=== PATIENT | male | born 1965 | race Caucasian/White ===

== ENCOUNTER 2020-04-10 11:36 | Emergency (ER) | payer OTHER, SELFPAY ==
[2020-04-10] VITALS (15 sets, daily range): BP systolic 134–154; BP diastolic 80–100; PULSE 64–77; RESP 8–18; TEMP 36.8; O2SAT 92–100; BMI 22.9
--- NOTE | 2020-04-10 11:47 | ED.FALL ---
HPI - Fall General Chief Complaint: Trauma Stated Complaint: Modified Trauma Time Seen by Provider: 04/10/20 11:46 Source: patient and EMS Mode of arrival: EMS Limitations: no limitations History of Present Illness HPI Narrative: Patient brought in by EMS from work site. Patient working on a roof. On the ladder and lost his balance, fell from 8 feet above the ground. Patient states he was very alert about how he was going to land during the fall and denies denies hitting his head or neck. Broke his fall by posting his right arm outwards. Denies any other injuries other than the right upper extremity. Complains of humerus pain. Denies denies any loss of consciousness. No head or face or neck pain. No back pain no chest pain abdominal pain. No pelvis pain. ATLS protocol followed. See nurse's notes. Patient arrived in C-collar. Denied any neck pain at the scene. He did receive fentanyl, 150 mcg total with Zofran in route. Patient is awake alert oriented x4. Not altered. C-collar cleared clinically. No no no midline tenderness. No pain with movement. No neuro deficits shirt removed. Shoes and socks removed. Related Data Home Medications Medication Instructions Recorded Confirmed ibuprofen [Advil] 600 mg PO PRN #0 10/22/11 Previous Rx's Medication Instructions Recorded diazepam [Valium] 5 mg PO BID PRN #7 tab 04/10/20 ondansetron 4 mg PO Q8H PRN #10 tab 04/10/20 oxycodone-acetaminophen 1 tab PO QID PRN #20 tab 04/10/20 Allergies Allergy/AdvReac Type Severity Reaction Status Date / Time No Known Drug Allergies Allergy Verified 04/10/20 12:12 Review of Systems Review of Systems Narrative: GENERAL: Denies chills, fatigue, malaise, fever, sweats. HEENT: Denies sinus pain, ear pain, sore throat, difficulty swallowing, dizziness. RESPIRATORY: Denies dyspnea, cough, wheezing, hemoptysis, sputum. CARDIOVASCULAR: Denies chest pain, palpitations, orthopnea, edema, GASTROINTESTINAL: Denies nausea, vomiting, abdominal pain, diarrhea, constipation, melena. : Denies dysuria, frequency, incontinence, hematuria, urinary retention. MUSCULOSKELETAL: denies weakness, complaints of bony pain SKIN: Denies rash, skin lesions NEUROLOGIC: Denies weakness, headache, numbness, change in speech, confusion, seizures, incoordination. PSYCHIATRIC: No concerning psychosocial issues. ROS Unobtainable: All systems reviewed & are unremarkable except as noted in HPI and below Exam Narrative Exam Narrative: GENERAL: patient appears stated age. Well-nourished, well-developed patient, in no distress, not toxic, shirt removed HEAD: Atraumatic. Normocephalic. Nontender face head neck scalp. EYES: Pupils equal round and reactive. Extraocular motions intact. No scleral icterus. No injection or drainage. ENT: Nose without bleeding, purulent drainage. Throat without erythema, tonsillar hypertrophy or exudate. Airway patent. NECK: Trachea midline. Non tender, C-collar cleared clinically. No no no midline tenderness or step-off. Full flexion extension rotation of the neck without any pain or numbness tingling to the limbs CARDIOVASCULAR: Regular rate and rhythm without murmurs, gallops, or rubs. RESPIRATORY: Clear to auscultation. Breath sounds equal bilaterally. No wheezes, rales, or rhonchi. GASTROINTESTINAL: Abdomen soft, non-tender, nondistended. EXTREMITIES: Nontender left upper extremity shoulder joint elbow and wrist. Nontender bilateral pelvis hips knees and ankles. 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 Nontender elbow wrist and hand. There is mid humerus deformity with tenderness to touch. Nontender right shoulder. No gross deformity BACK: Nontender without deformity or crepitance. No flank tenderness. Patient log-rolled after C-collar cleared clinically. No no midline tenderness or step-off. No skin injury. NEURO: AOx4. SKIN: No rash or erythema of visible areas, small abrasion to the right elbow PSYCH: Not anxious, is cooperative Initial Vital Signs Initial Vital Signs: Vital Signs Pulse Rate 68 04/10/20 11:39 Blood Pressure 142/100 H 04/10/20 11:39 Pulse Oximetry 98 04/10/20 11:39 Procedures Orthopedic Splinting/Casting Right humerus: Side: right Upper Extremity Injury Location: upper arm Upper Extremity Immobilizer: sling/shoulder immobilizer (Humerus brace) Post splinting neuro exam: intact Post splinting vascular exam: intact Placed by: Provider Course Course Course Narrative: Patient tolerating splinting very well. No hypotension with medications given. No altered mental status dyspnea hypoxia or hypotension with medications given here patient has remained on monitor Orders Ordered: ED Orders 04/10/20 11:43 Complete Blood Count AUTO DIFF Stat Comprehensive Metabolic Panel Stat 04/10/20 11:46 XR humerus RT 2V Stat XR pelvis 1-2V Stat XR shoulder RT min 2V Stat 04/10/20 11:51 XR chest 1V Stat 04/10/20 13:44 XR humerus RT 2V Stat Discontinued Medications Bacitracin (Bacitracin) 3 applic TOP NOW ONE Stop: 04/10/20 12:37 Last Admin: 04/10/20 12:47 Dose: 3 applic Documented by: AMIRA Diazepam (Valium) 5 mg IV NOW ONE Stop: 04/10/20 13:26 Last Admin: 04/10/20 13:45 Dose: 5 mg Documented by: AMIRA Diphtheria/Tetanus/Acell Pertussis (Adacel) 0.5 ml IM .ONCE ONE Stop: 04/10/20 11:47 Last Admin: 04/10/20 12:12 Dose: 0.5 ml Documented by: TAWNY Hydromorphone HCl (Dilaudid) 1 mg IM NOW ONE Stop: 04/10/20 15:09 Last Admin: 04/10/20 15:16 Dose: 1 mg Documented by: MORENO Morphine Sulfate (Morphine) 4 mg IV NOW ONE Stop: 04/10/20 13:12 Last Admin: 04/10/20 13:42 Dose: Not Given Documented by: AMIRA Morphine Sulfate (Morphine) 4 mg IV NOW ONE Stop: 04/10/20 13:49 Last Admin: 04/10/20 14:16 Dose: 4 mg Documented by: AMIRA Reevaluation(s) Reevaluation #1: Mother at bedside to take patient home. Patient is hemodynamically stable awake alert oriented x4. No altered mental status. Pain medication given here has not altered patient or cause any hypoxia or hypotension or altered mental status. Patient desires discharge home Time: 15:15 Consultations Consultation #1: Spoke with Orthopedics, dr kavitha patel... She has reviewed films and agrees with treatment plan. Patient can follow up next week. Time: 14:01 Vital Signs Vital signs: Vital Signs - 8 hr 04/10/20 11:39 04/10/20 11:55 04/10/20 12:02 Temperature 98.3 F Pulse Rate 68 67 68 Respiratory Rate 15 Blood Pressure 142/100 H 142/100 H Pulse Oximetry 98 98 99 04/10/20 12:09 04/10/20 12:15 04/10/20 12:30 Temperature Pulse Rate 65 66 66 Respiratory Rate 15 12 14 Blood Pressure 154/88 H 154/90 H 144/90 H Pulse Oximetry 100 100 96 04/10/20 12:45 04/10/20 13:00 04/10/20 13:15 Temperature Pulse Rate 65 66 65 Respiratory Rate 15 8 L 8 L Blood Pressure 149/90 H 144/90 H 135/81 Pulse Oximetry 98 96 96 04/10/20 13:30 04/10/20 13:45 04/10/20 14:00 Temperature Pulse Rate 66 64 66 Respiratory Rate 18 13 17 Blood Pressure 135/85 138/86 134/85 Pulse Oximetry 96 92 92 04/10/20 14:15 04/10/20 14:30 04/10/20 14:46 Temperature Pulse Rate 76 72 77 Respiratory Rate 12 15 Blood Pressure 146/87 H 144/80 H 143/81 H Pulse Oximetry 96 94 96 MDM - Fall Differential Diagnosis Differential diagnosis: Likely other (Abrasion/arm fracture) Lab Data Attestation: I reviewed the patient's lab results. Result diagrams: 04/10/20 11:43 04/10/20 11:43 Labs: Lab Results 04/10/20 04/10/20 Range/Units 11:43 11:43 WBC 7.8 (4.5-11.0) X10^3/uL RBC 4.65 (4.5-5.9) X10^6/uL Hgb 14.1 (13.5-17.5) g/dL Hct 40.6 L (41-53) % MCV 87.3 (80-100) fL MCH 30.3 (26-34) PG MCHC 34.7 (30-36) % RDW 13.2 (11.6-14.8) % Plt Count 195 (150-400) X10^3/uL Neut % (Auto) 54.8 (50-75) % Lymph % (Auto) 34.5 (25-40) % [place] % (Auto) 6.9 (3-14) % Eos % (Auto) 3.2 (2-4) % Baso % (Auto) 0.6 (0-2) % Neut # (Auto) 4300 (3523-6592) /uL Lymph # (Auto) 2700 (9366-6334) /uL [place] # (Auto) 500 (0-900) /uL Eos # (Auto) 200 (0-450) /uL Baso # (Auto) 0 (0-100) /uL Sodium 137 (137-145) mmol/L Potassium 3.8 (3.4-5.1) mmol/L Chloride 104 (98-107) mmol/L Carbon Dioxide 27 (22-32) mmol/L BUN 14 (9-20) mg/dL Creatinine 0.74 (0.66-1.25) mg/dL Estimated GFR > 60.0 (>60) mL/min BUN/Creatinine Ratio 18.9 (6-22) Glucose 110 H (70-100) mg/dL Calcium 8.6 (8.4-10.2) mg/dL Total Bilirubin 0.7 (0.2-1.3) mg/dL AST 48 (17-59) IU/L ALT 33 (<50) IU/L Alkaline Phosphatase 48 (38-126) U/L Total Protein 6.7 (6.3-8.2) g/dL Albumin 4.0 (3.5-5.0) g/dL Globulin 2.7 (1.7-4.1) g/dL Albumin/Globulin Ratio 1.5 (1.0-2.8) Imaging Data X-ray right humerus: Radiologist's Impression: [address] [address] XRay Report Signed Patient: Aime Mccarty R#: [id number] : 1965Acct:[id number] Age/Sex: 55 / MDate of Service: 04/10/20 Loc: ED Accession Number: [id number] Procedure: XR humerus RT 2V Ordering Provider: Malik Mclean MD PROCEDURE: XR HUMERUS RT 2V INDICATIONS: Pain/trauma/injury TECHNIQUE: 2 views of the humerus were acquired. COMPARISON: None. FINDINGS: Bones: Slightly overriding, displaced fracture of the mid humeral diaphysis. There is anterior displacement of the distal fracture fragment. Soft tissues: No suspicious soft tissue calcifications. IMPRESSION: Overriding mid right humeral diaphyseal fracture Dictated by: Bob Headley M.D. on 04/10/2020 at 12:13 Approved by: Bob Headley M.D. on 04/10/2020 at 12:27 X-ray right humerus post splint: Radiologist's Impression: [address] [address] XRay Report Signed Patient: Aime Mccarty R#: [id number] : 1965Acct:[id number] Age/Sex: 55 / MDate of Service: 04/10/20 Loc: ED Accession Number: [id number] Procedure: XR humerus RT 2V Ordering Provider: Malik Mclean MD PROCEDURE: XR HUMERUS RT 2V INDICATIONS: Post reduction TECHNIQUE: 2 views of the humerus were acquired. COMPARISON: [facility], , XR HUMERUS RT 2V, 04/10/2020, 11:36. FINDINGS: Bones: No previously on identified fractures or dislocations. No suspicious bony lesions. Post reduction plain film show little change from earlier same day. Soft tissues: No suspicious soft tissue calcifications. IMPRESSION: No significant change in midshaft right humeral diaphyseal fracture after reduction. Fracture tips remain in apposition, but offset. Dictated by: Farhad Duncan M.D. on 04/10/2020 at 14:10 Approved by: Farhad Duncan M.D. on 04/10/2020 at 14:11 X-ray pelvis: Radiologist's Impression: [address] [address] XRay Report Signed Patient: Aime Mccarty R#: [id number] : 1965Acct:[id number] Age/Sex: 55 / MDate of Service: 04/10/20 Loc: ED Accession Number: [id number] Procedure: XR pelvis 1-2V Ordering Provider: Malik Mclean MD PROCEDURE: XR PELVIS 1-2V INDICATIONS: Pain/trauma/injury TECHNIQUE: 1 view(s) of the pelvis acquired. COMPARISON: None. FINDINGS: Bones: No fractures or dislocations. No suspicious bony lesions. Soft tissues: Visualized bowel gas pattern is normal. No suspicious soft tissue calcifications. IMPRESSION: No fracture. No osseous lesion. If symptoms and/or clinical suspicion for pathology persists, further assessment with repeat radiographs (7-10 days) or advanced imaging (e.g. CT, MRI or bone scan) may be helpful. Dictated by: Mercedes Kumari MD, PhD on 04/10/2020 at 12:29 Approved by: Mercedes Kumari MD, PhD on 04/10/2020 at 12:30 X-ray right shoulder: Radiologist's Impression: [address] [address] XRay Report Signed Patient: Aime Mccarty R#: [id number] : 1965Acct:[id number] Age/Sex: 55 / MDate of Service: 04/10/20 Loc: ED Accession Number: [id number] Procedure: XR shoulder RT min 2V Ordering Provider: Malik Mclean MD PROCEDURE: XR SHOULDER RT MIN 2V INDICATIONS: Pain/trauma/injury TECHNIQUE: 2 views of the shoulder were acquired. COMPARISON: None. FINDINGS: Bones: Transverse fracture of the proximal right humerus noted. Fracture is displaced medially and angulated. Soft tissues: No suspicious soft tissue calcifications. IMPRESSION: Proximal right humerus fracture. Dictated by: Mercedes Kumari MD, PhD on 04/10/2020 at 12:28 Approved by: Mercedes Kumari MD, PhD on 04/10/2020 at 12:29 Chest x-ray: Radiologist's Impression: [address] [address] XRay Report Signed Patient: Aime Mccarty R#: [id number] : 1965Acct:[id number] Age/Sex: 55 / MDate of Service: 04/10/20 Loc: ED Accession Number: [id number] Procedure: XR chest 1V Ordering Provider: Malik Mclean MD PROCEDURE: XR CHEST 1V INDICATIONS: Pain/trauma/injury TECHNIQUE: One view of the chest was acquired. COMPARISON: [facility], , CHEST 2 VIEW, 01/27/2009, 9:07. [facility], CHEST 2 VIEW, 01/07/2010, 8:09. FINDINGS: Surgical changes and devices: None. Scattered subsegmental atelectasis and/or scarring. No focal consolidation. No pleural effusions or pneumothorax. Mediastinum: Mediastinal contours appear normal. Heart size is normal. Bones and chest wall: No suspicious bony lesions. Overlying soft tissues appear unremarkable. IMPRESSION: No acute disease Dictated by: Bob Headley M.D. on 04/10/2020 at 12:27 Approved by: Bob Headley M.D. on 04/10/2020 at 12:29 [facility] Narrative Medical decision making narrative: Appropriate for discharge home. Patient hemodynamically stable. Pain is controlled. Care with for abrasion complete here with Hibiclens and saline and bacitracin. No imaging of head or C-spine indicated. Patient is awake alert oriented not altered. There is no complains of head pain or trauma or injury. No trauma on exam of the head and neck. Discharge Plan Departure Patient Disposition: Home Clinical Impression: Closed fracture of humerus Qualifiers: Encounter type: initial encounter Humerus Location: shaft Fracture morphology: transverse Fracture alignment: displaced Laterality: right Qualified Code(s): S42.321A - Displaced transverse fracture of shaft of humerus, right arm, initial encounter for closed fracture Discharge Date/Time: 04/10/20 15:42 Instructions: DI for Trauma, Humeral Shaft Fracture Activity Restrictions/Additional Instructions: No driving or operating machinery. Called provided orthopedic office on Monday, Dr. Patel for office time next week. Keep in brace/splint. Return if worse or if worse in pain or if any numbness tingling or weakness to the hand or if any questions or concerns. Prescriptions: New ondansetron 4 mg tablet,disintegrating 4 mg PO Q8H PRN (Reason: nausea and vomiting) Qty: 10 RF: 0 oxycodone-acetaminophen 7.5-325 mg tablet 1 tab PO QID PRN (Reason: pain) Qty: 20 RF: 0 diazepam [Valium] 5 mg tablet 5 mg PO BID PRN (Reason: muscle spasm) Qty: 7 RF: 0 No Action ibuprofen [Advil] 200 MG tablet 600 mg PO PRN Qty: 0 RF: 0 Referrals: Michael Neri MD [Primary Care Provider] - Kavitha Patel MD [Physician] - Stand Alone Forms: Work Release Note
--- NOTE | 2020-04-10 11:51 | DI.RAD.S_ITS ---
PROCEDURE: XR CHEST 1V INDICATIONS: Pain/trauma/injury TECHNIQUE: One view of the chest was acquired. COMPARISON: [facility], CHEST 2 VIEW, 01/27/2009, 9:07. [facility], CHEST 2 VIEW, 01/07/2010, 8:09. FINDINGS: Surgical changes and devices: None. Scattered subsegmental atelectasis and/or scarring. No focal consolidation. No pleural effusions or pneumothorax. Mediastinum: Mediastinal contours appear normal. Heart size is normal. Bones and chest wall: No suspicious bony lesions. Overlying soft tissues appear unremarkable. IMPRESSION: No acute disease Dictated by: Bob Headley M.D. on 04/10/2020 at 12:27 Approved by: Bob Headley M.D. on 04/10/2020 at 12:29
[2020-04-10 12:03] LABS: Alanine Aminotransferase 33 IU/L (<50); Albumin Globulin Ratio 1.5 (1.0-2.8); Alkaline Phosphatase 48 U/L (38-126); Aspartate Aminotransferase 48 IU/L (17-59); BUN Creatinine Ratio 18.9 (6-22); Bilirubin Total 0.7 mg/dL (0.2-1.3); Blood Urea Nitrogen 14 mg/dL (9-20); Calcium 8.6 mg/dL (8.4-10.2); Carbon Dioxide 27 mmol/L (22-32); Chloride 104 mmol/L (98-107); Estimated Glomerular Filt Rate > 60.0 mL/min (>60); Globulin 2.7 g/dL (1.7-4.1); Glucose 110 mg/dL (70-100); HEMOLYSIS < 15 (0-50); Potassium 3.8 mmol/L (3.4-5.1); Sodium 137 mmol/L (137-145); Total Protein 6.7 g/dL (6.3-8.2)
[2020-04-10] MEDS: TET,DIPH,PERTUSS(ACELL),VAC/PF 0.5 ML SYRINGE IM (12:12)
[2020-04-10] MEDS: HYDROMORPHONE 1 MG INJ (12:13)
[2020-04-10] MEDS: fentaNYL 100 MCG/2 ML INJ (12:36)
[2020-04-10] MEDS: BACITRACIN OINT 0.9 GM PCKT 3 APPLIC TOP (12:47)
[2020-04-10 13:08] LABS: Add Manual Diff / Slide Review NO; Basophils Absolute Auto 0 /uL (0-100); Basophils Percent Auto 0.6 % (0-2); Eosinophils Absolute Auto 200 /uL (0-450); Eosinophils Percent Auto 3.2 % (2-4); Hematocrit 40.6 % (41-53); Hemoglobin 14.1 g/dL (13.5-17.5); Lymphocytes Absolute Auto 2700 /uL (1100-4500); Lymphocytes Percent Auto 34.5 % (25-40); Mean Corpuscular HGB Conc 34.7 % (30-36); Mean Corpuscular Hemoglobin 30.3 PG (26-34); Mean Corpuscular Volume 87.3 fL (80-100); Monocytes Absolute Auto 500 /uL (0-900); Monocytes Percent Auto 6.9 % (3-14); Neutrophils Absolute Auto 4300 /uL (1500-7000); Neutrophils Percent Auto 54.8 % (50-75); Platelet Count 195 X10^3/uL (150-400); Red Blood Cell Count 4.65 X10^6/uL (4.5-5.9); Red Cell Distribution Width 13.2 % (11.6-14.8); White Blood Cell Count 7.8 X10^3/uL (4.5-11.0)
--- NOTE | 2020-04-10 13:44 | DI.RAD.S_ITS ---
PROCEDURE: XR HUMERUS RT 2V INDICATIONS: Post reduction TECHNIQUE: 2 views of the humerus were acquired. COMPARISON: [facility], CR, XR HUMERUS RT 2V, 04/10/2020, 11:36. FINDINGS: Bones: No previously on identified fractures or dislocations. No suspicious bony lesions. Post reduction plain film show little change from earlier same day. Soft tissues: No suspicious soft tissue calcifications. IMPRESSION: No significant change in midshaft right humeral diaphyseal fracture after reduction. Fracture tips remain in apposition, but offset. Dictated by: Farhad Duncan M.D. on 04/10/2020 at 14:10 Approved by: Farhad Duncan M.D. on 04/10/2020 at 14:11
[2020-04-10] MEDS: diazePAM 10 MG/2 ML SYRINGE 5 MG IV (13:45)
--- NOTE | 2020-04-10 13:49 | PC.NURSE ---
1137: Please see trauma flowsheet for initial assessment documentation. 1330: Pt medicated for pain and HANH spasms per SEP. Pt placed in Humeral cuff splint as reduction for HANH fracture. Appears more comfortable. XR in room at this time for post reduction fracture.
[2020-04-10] MEDS: MORPHINE 4 MG/ML INJ IV (14:16)
[2020-04-10] MEDS: HYDROMORPHONE 1 MG INJ IM (15:16)
--- NOTE | 2020-04-10 15:43 | PC.NURSE ---
This RN placed a sling on pt's R arm with assistance from a second RN after administration of IM pain medication. Pt educated on sling use and s/s of complications.
== END 2020-04-10 15:42 | disposition home or self-care (01) ==
PROVIDERS: Emergency Provider Emergency Medicine; Family Provider Family Medicine; PCP Family Medicine
DX: S42.321A Displaced transverse fracture of shaft of humerus, right arm, initial encounter for closed fracture (principal); S09.90XA Unspecified injury of head, initial encounter; W11.XXXA Fall on and from ladder, initial encounter; Z23 Encounter for immunization; Y99.0 Civilian activity done for income or pay
CPT/HCPCS: 29125; 71045; 72170; 73030; 73060; 80053; 85025; 90471; 96372; 96374; 96375; 99285; 90715; J1170; J2270; J3010; J3360

== ENCOUNTER → 2020-04-21 15:01 | Outpatient (CLI) | payer OTHER, SELFPAY ==
[2020-04-22 14:11] LABS: COVID19 Sendout Not Detected (Not Detect)
== END ==
PROVIDERS: Family Provider Family Medicine; PCP Family Medicine; Visit Provider Physician Assistant
DX: Z11.59 Encounter for screening for other viral diseases (principal)
CPT/HCPCS: 87635

== ENCOUNTER 2020-04-24 12:51 | Day surgery (SDC) | payer OTHER, SELFPAY ==
[2020-04-22 13:46] VITALS: BMI 24.9
[2020-04-24] VITALS (7 sets, daily range): BP systolic 121–158; BP diastolic 68–97; PULSE 68–108; RESP 10–16; TEMP 36.9–37.1; O2SAT 95–99; BMI 24.9
--- NOTE | 2020-04-24 | DI.RAD.S_ITS ---
PROCEDURE: XR HUMERUS RT 2V INDICATIONS: ORIF RIGHT HUMERUS TECHNIQUE: 2 views of the humerus were acquired. COMPARISON: , , XR HUMERUS RT 2V, 04/10/2020, 13:48. FINDINGS: Bones: Intraoperative images demonstrate postsurgical changes compatible with ORIF of right humerus fracture. Orthopedic plate screws have been placed for internal fixation. There is anatomic alignment of the humerus fracture fragments following ORIF. Soft tissues: No suspicious soft tissue calcifications. IMPRESSION: Expected postsurgical change for ORIF of right humerus fracture with anatomic alignment. Dictated by: Mercedes Kumari MD, PhD on 04/24/2020 at 19:05 Approved by: Mercedes Kumari MD, PhD on 04/24/2020 at 19:07
[2020-04-24] MEDS: CELECOXIB 200 MG CAPSULE 400 MG PO (13:14)
[2020-04-24] MEDS: LACTATED RINGERS 1,000 ML 42 ML IV ×2 (13:23→17:27)
--- NOTE | 2020-04-24 14:21 | SUR.OPER ---
Supine on padded OR bed, head on pillow, arms secured on padded arm boards at <90 degrees abduction, legs uncrossed, safety belt at thigh, tape over blanket over lower legs.
--- NOTE | 2020-04-24 14:27 | PM.PREOP ---
Pre-operative Note COVID-19 COVID-19 status: Negative Interval Note History & Physical reviewed/Exam performed by Physician: Yes Changes to H&P: No
--- NOTE | 2020-04-24 14:30 | P.OP_ITS ---
Operative Date/Time/Diagnoses Date of procedure: 04/24/20 Time of procedure: 14:30 Pre-op diagnosis: Right humerus fracture, right radial head fracture Post-op diagnosis: same Procedure & Clinicians Procedure: ORIF right humerus with plate and DBM bone graft Same procedure as scheduled: Yes Indications: 55-year-old gentleman who fell off a roof and landed on his right arm. He was evaluated and noted to have a displaced right midshaft humerus fracture and a radial head fracture. He is brought to the operating room for open reduction internal fixation of his humerus fracture and possible open reduction internal fixation of his radial head fracture. Fracture was noted to be grossly displaced and slightly comminuted. He is right-hand dominant a normally fairly physically active. He is a smoker. Surgeon: Joaquina Manzo Business [employer] Professor: Franca Zamorano Anesthesia Type: General Operative Notes Findings: Nondisplaced radial head fracture, full range of motion in the elbow, displaced midshaft radius fracture with some comminution, anatomic reduction stable fixation with adequate compression Closure Type: primary Specimen(s): none sent Prosthetic devices, grafts, tissues, transplants, or devices: [employer] broad large fragment compression plate with locking option, lag screw, bio DBM putty 2.5 cc Estimated Blood Loss (mL): 200 Blood products transfused: none Procedure in detail: The patient was brought to the operating room. He underwent the satisfactory induction of a general anesthesia. Time-out was performed. His right upper extremities prepped draped standard sterile fashion. I brought in C-arm checked his fracture alignment as well as is radial head fracture. Was noted that the radial head fracture was anatomic and it was felt that a probably did not require open reduction internal fixation. The humerus fracture was grossly unstable. Antibiotics were given and time-out was performed. His right upper extremity prepped draped standard sterile fashion. I used a anterior approach to the humerus with a portion of it into the deltopectoral interval. Incision was made dissection was carried out through skin and subcutaneous tissues. Retractors were placed is. We dissected down to the fascia. Meticulously protected the cephalic vein and retracted it medially. I dissected down at the level of the deltopectoral interval in the most distal aspect and then dissected down to the humerus. Distally define the interval with the biceps being retracted medially the brachia radialis on the more lateral side. Dissected down very gently retracted the biceps and dissected down to find the brachialis. The fracture level was identified. The periosteum was incised at the fracture level which was just slightly proximal and 2 muscle bellies of the brachial brachialis and into the insertion region. The fracture was noted to be grossly unstable and somewhat comminuted. The medial and lateral heads of the brachialis were partially stripped off of the humerus. The fracture was quite unstable. It was meticulously reduced using a combination of rotation of the arm light traction and then subsequent compression of the fracture site. It with is then fixed with a lag screw. I then applied a 8 hole locking DCP a compression plate with compression from both sides of the fracture meticulously examining the fracture during him in a compression make sure there was adequate compression. There was some mild comminution posteriorly. And it was felt that it would be supple be helpful to do supplemental bone grafting. I brought in C-arm confirmed the anatomic reduction and the position of the plate and then he placed a total of 6 screws in the plate in addition to the lag screw. One screw was left open as it was in the fracture site and there was 1 that was more distal which was not felt to be necessary for supplemental fixation. The wound was meticulously irrigated with normal saline recheck with C-arm showed anatomic reduction recheck clinically showed good compression across the fracture site. DBM putty was packed into the comminuted region. C- arm also confirmed that the radial head fracture was still anatomically reduced and I specifically checked to make sure that he had full supination and pronation of his elbow. Wound was closed with interrupted Vicryl skin was closed with strata fix and Steri-Strips. Wound was dressed sterilely patient was placed in an Aquacel and wrapped with a bias cut stockinette. Complications none. Complications: none Post-operative Condition: stable Disposition: same day surgery Plan for aftercare: Sling. No lifting. Gentle range of motion wrist hand and limited range of motion elbow
[2020-04-24] MEDS: TRANEXAMIC ACID 1,000 MG VIAL 1000 MG INH ×2 (14:31→17:25)
[2020-04-24] MEDS: CEFAZOLIN 2 GM/100 ML FROZ.PIGGY IV (14:52)
--- NOTE | 2020-04-24 15:38 | SUR.OPER ---
patient presents with rash like skin on upper chest, patient states it is a pigmentation issue of his skin. patien also presents with irritated flaky skin in right axilla and medial bicep.
[2020-04-24] MEDS: BUPIVACAINE 0.5% W/ EPI (PF) 30 ML VIAL INJ (15:49)
[2020-04-24] MEDS: HYDROMORPHONE 2 MG INJ IV (18:33)
[2020-04-24] MEDS: OXYCODONE IR 5 MG TABLET PO ×2 (18:34→19:09)
[2020-04-24] MEDS: ONDANSETRON 4 MG/2 ML INJ IV (18:34)
== END 2020-04-24 19:33 | disposition home or self-care (01) ==
PROVIDERS: Family Provider Family Medicine; PCP Family Medicine; Referring Provider Family Medicine; Visit Provider Orthopaedic Surgery
PROC: (CPT 24515; principal; 2020-04-24 14:30)
DX: S42.351A Displaced comminuted fracture of shaft of humerus, right arm, initial encounter for closed fracture (principal); S42.474A Nondisplaced transcondylar fracture of right humerus, initial encounter for closed fracture; W17.89XA Other fall from one level to another, initial encounter; S30.0XXA Contusion of lower back and pelvis, initial encounter; Y93.H3 Activity, building and construction; Y92.9 Unspecified place or not applicable
CPT/HCPCS: 24515; 73060; 76000; J0690; J1170; J2250; J2405; J2704; J3010

== ENCOUNTER → 2020-08-18 15:57 | Outpatient (CLI) | payer OTHER, SELFPAY ==
--- NOTE | 2020-08-18 16:01 | DI.MRI.S_ITS ---
PROCEDURE: MR SHOULDER RT WO CON INDICATIONS: DISPLACED COMMINUTED FRACTURE OF SHAFT OF HUMERUS. Right shoulder pain TECHNIQUE: Noncontrast oblique coronal T2 fast spin echo with fat saturation, oblique sagittal T1 spin echo and T2 fast spin echo with fat saturation, axial T1 spin echo and T2 fast spin echo with fat saturation through the shoulder. COMPARISON: [facility], CR, XR HUMERUS RIGHT, 08/05/2020, 14:18. FINDINGS: Image quality: Degraded by metallic artifact within the mid humerus. Rotator cuff: Mild T2 signal elevation throughout the supraspinatus and infraspinatus tendons at the humeral insertion site, indicating tendinopathy. Superimposed small moderate grade intrasubstance tear the he mid supraspinatus tendon at the humeral insertion site. Superimposed high-grade intrasubstance tearing of the posterior supraspinatus tendon the humeral insertion site. No infraspinatus tear. Teres minor is intact. Subscapularis is intact. No rotator cuff atrophy. Bones and bursae: No bone marrow contusions or fractures. Moderate acromioclavicular joint degeneration. The acromion demonstrates conventional anatomy, without an os acromiale. No pathologic subacromial-subdeltoid or subcoracoid bursal fluid is present. Capsule and soft tissues: High T2 signal intensity within the posterosuperior, mid posterior, and posteroinferior labrum. The long head of the biceps tendon demonstrates normal location and morphology. The rotator interval appears normal, without fibrosis. The coracohumeral ligament is normal in thickness. IMPRESSION: 1. Supraspinatus and infraspinatus tendinopathy. Superimposed moderate high-grade tears of the supraspinatus tendon. No full-thickness rotator cuff tear. 2. Acromioclavicular joint osteoarthritis. 3. Glenoid labral tear. Dictated by: Carlos Eduardo Celis M.D. on 08/19/2020 at 8:42 Approved by: Carlos Eduardo Celis M.D. on 08/19/2020 at 8:46
== END ==
PROVIDERS: Family Provider Family Medicine; PCP Family Medicine; Referring Provider Orthopaedic Surgery; Visit Provider Orthopaedic Surgery
DX: S42.351D Displaced comminuted fracture of shaft of humerus, right arm, subsequent encounter for fracture with routine healing (principal); M25.511 Pain in right shoulder; M75.111 Incomplete rotator cuff tear or rupture of right shoulder, not specified as traumatic; M19.011 Primary osteoarthritis, right shoulder; S43.491A Other sprain of right shoulder joint, initial encounter
CPT/HCPCS: 73221

== ENCOUNTER → 2023-06-30 12:25 | Outpatient (CLI) | payer OTHER, SELFPAY ==
[2023-06-30 13:02] LABS: Add Manual Diff / Slide Review NO; Basophils Absolute Auto 100 /uL (0-100); Basophils Percent Auto 0.7 % (0-2); Eosinophils Absolute Auto 200 /uL (0-450); Hematocrit 41.4 % (41-53); Hemoglobin 14.1 g/dL (13.5-17.5); Lymphocytes Absolute Auto 1600 /uL (1100-4500); Lymphocytes Percent Auto 20.7 % (25-40); Mean Corpuscular HGB Conc 34.1 % (30-36); Mean Corpuscular Hemoglobin 28.6 PG (26-34); Monocytes Absolute Auto 600 /uL (0-900); Monocytes Percent Auto 8.1 % (3-14); Neutrophils Absolute Auto 5300 /uL (1500-7000); Neutrophils Percent Auto 68.5 % (50-75); Platelet Count 231 X10^3/uL (150-400); Red Blood Cell Count 4.93 X10^6/uL (4.5-5.9); Red Cell Distribution Width 14.9 % (11.6-14.8); White Blood Cell Count 7.7 X10^3/uL (4.5-11.0)
[2023-06-30 13:18] LABS: Hemoglobin A1C% w Est Avg Glu 5.5 % (4.0-6.0)
[2023-06-30 13:30] LABS: Appearance Urine UA CLEAR; Bilirubin Urine UA NEGATIVE (NEGATIVE); Color Urine UA YELLOW; Glucose Urine UA NEGATIVE (Negative); Ketones Urine UA NEGATIVE (NEGATIVE); Leukocyte Esterase Urine UA NEGATIVE (NEGATIVE); Nitrite Urine UA NEGATIVE (Negative); Occult Blood Urine UA NEGATIVE (Negative); Protein Urine UA NEGATIVE (Negative); Urobilinogen Urine UA 0.2 E.U./dL (0.2)
[2023-06-30 13:38] LABS: BUN Creatinine Ratio 14.3 (6-22); Blood Urea Nitrogen 11 mg/dL (9-20); Calcium 9.9 mg/dL (8.4-10.2); Carbon Dioxide 29 mmol/L (22-32); Chloride 100 mmol/L (98-107); Estimated Glomerular Filt Rate > 60 mL/min (>60); Glucose 91 mg/dL (70-100); HEMOLYSIS < 15 (0-50); Potassium 4.5 mmol/L (3.4-5.1); Sodium 138 mmol/L (137-145)
[2023-06-30 13:43] LABS: Bacteria Urine None Seen; Culture Indicated Urine Cult Not Indicated; RBC Urine None Seen (0-5/HPF); Squamous Epithelial Cell Urine None Seen (0-5/HPF); WBC Urine None Seen (0-5/HPF)
== END ==
PROVIDERS: Family Provider Family Medicine; PCP Family Medicine; Referring Provider Orthopaedic Surgery; Visit Provider Orthopaedic Surgery
DX: Z01.818 Encounter for other preprocedural examination (principal); M25.561 Pain in right knee; R73.9 Hyperglycemia, unspecified; Z01.812 Encounter for preprocedural laboratory examination; N39.0 Urinary tract infection, site not specified
CPT/HCPCS: 36415; 80048; 81001; 83036; 85025; 93005

== ENCOUNTER → 2024-12-06 07:22 | Outpatient (CLI) | payer OTHER, SELFPAY ==
[2024-12-06 08:01] LABS: Add Manual Diff / Slide Review NO; Basophils Absolute Auto 0 /uL (0-100); Basophils Percent Auto 0.6 % (0-2); Eosinophils Absolute Auto 100 /uL (0-450); Eosinophils Percent Auto 2.2 % (2-4); Hematocrit 43.2 % (41-53); Hemoglobin 14.8 g/dL (13.5-17.5); Lymphocytes Absolute Auto 1600 /uL (1100-4500); Lymphocytes Percent Auto 27.4 % (25-40); Mean Corpuscular HGB Conc 34.3 % (30-36); Mean Corpuscular Hemoglobin 29.5 PG (26-34); Monocytes Absolute Auto 500 /uL (0-900); Monocytes Percent Auto 9.3 % (3-14); Neutrophils Absolute Auto 3500 /uL (1500-7000); Neutrophils Percent Auto 60.5 % (50-75); Platelet Count 234 X10^3/uL (150-400); Red Blood Cell Count 5.01 X10^6/uL (4.5-5.9); Red Cell Distribution Width 14.2 % (11.6-14.8); White Blood Cell Count 5.7 X10^3/uL (4.5-11.0)
[2024-12-06 08:46] LABS: Alanine Aminotransferase 17 IU/L (<50); Albumin 4.5 g/dL (3.5-5.0); Albumin Globulin Ratio 1.7 (1.0-2.8); Alkaline Phosphatase 51 U/L (38-126); Aspartate Aminotransferase 23 IU/L (17-59); BUN Creatinine Ratio 13.5 (6-22); Bilirubin Total 0.6 mg/dL (0.2-1.3); Blood Urea Nitrogen 14 mg/dL (9-20); Carbon Dioxide 26 mmol/L (22-32); Chloride 105 mmol/L (98-107); Cholesterol 201 mg/dL (140-199); Estimated Glomerular Filt Rate > 60 mL/min (>60); Globulin 2.6 g/dL (1.7-4.1); Glucose 101 mg/dL (70-99); HDL Cholesterol 40 mg/dL (40-60); HEMOLYSIS < 15 (0-50); LDL Cholesterol Calculated 141 mg/dL (<100); Potassium 4.3 mmol/L (3.4-5.1); Sodium 140 mmol/L (137-145); Total Protein 7.1 g/dL (6.3-8.2); Triglycerides 101 mg/dL (35-150)
[2024-12-06 09:09] LABS: Prostate Specific Antigen Scrn 1.78 ng/mL (0.1-4.0)
== END ==
LOC: LAB 07:23
PROVIDERS: Family Provider Family Medicine; PCP Family Medicine; Referring Provider Family Medicine; Visit Provider Family Medicine
DX: Z13.220 Encounter for screening for lipoid disorders (principal); Z12.5 Encounter for screening for malignant neoplasm of prostate
CPT/HCPCS: 36415; 80053; 80061; 85025; G0103